=== PATIENT | female | born 2000 | race Caucasian/White ===

== ENCOUNTER 2018-01-18 21:15 | Emergency (ER) | payer OTHER ==
[~2018-01-18] VITALS: Ht 160 cm; Wt 90.7 kg
--- NOTE | 2018-01-18 21:17 | NUR ---
PT TO ER BED 13. PRESENTS W/ BILAT ELBOW AREA HIVES AND ITCHING X 1 DAY. DENIES DIFFICULTY BREATHING, SOB. PT STATES USED A NEW SOAP THAT HER MOTHER BOUGHT. STABLE VITALS. AWAITING MD JACOME.
--- NOTE | 2018-01-18 22:27 | NUR ---
DR PIERCE AT BEDSIDE FOR EVAL.
[2018-01-18] MEDS ORDERED: DEXAMETHASONE SOD PHOSPHATE 4 MG/ML VIAL IM ONE (22:30)
[2018-01-18] MEDS ORDERED: FAMOTIDINE (20 MG) 20 MG TABLET PO ONE (22:30)
[2018-01-18] MEDS ORDERED: diphenhydrAMINE HCL 50 MG/ML VIAL IM ONE (22:30)
[2018-01-18] MEDS ORDERED: DEXAMETHASONE SOD PHOSPHATE 10 MG/ML VIAL ONE (22:37)
[2018-01-18] MEDS ORDERED: FAMOTIDINE (20 MG) 20 MG TABLET ONE (22:37)
[2018-01-18] MEDS ORDERED: diphenhydrAMINE HCL 50 MG/ML VIAL ONE (22:37)
[2018-01-18 23:17] VITALS: BP 132/80
--- NOTE | 2018-01-18 23:17 | NUR ---
Patient discharged to home in stable condition. Written and verbal after care instructions given. Patient verbalizes understanding of instruction.
== END 2018-01-18 23:18 | disposition home or self-care (01) ==
LOC: ER 21:15
DX: L50.8 Other urticaria (principal)
CPT/HCPCS: 96372 ×2; 99284; A4606; J1100; J1200; Z7610